=== PATIENT | female | born 1970 | race Caucasian/White ===

== ENCOUNTER → 2018-06-08 | Day surgery (SDC) | payer OTHER ==
[~2018-06-08] VITALS: Ht 162.6 cm; Wt 95.7 kg
[~2018-06-08] MED LIST: AMOXIL500 MG PO; BACTRIM DS 8001 TAB PO; BUSPAR5 MG PO; CLONIDINE0.1 MG PO; CYMBALTA60 M1 PO; DEPAKOTE ER250 M1 PO; DIVALPROEX SOD500 M2 PO; DULOXETINE HCL30 MG PO; GLIMEPIRIDE2 MG PO; LIPITOR10 M1 PO; MASON NATURAL2000 IU PO; MEDROL DOSEPAK1 PAC PO; METFORMIN HCL500 M3 PO; MOBIC15 M1 PO; NAPROSYN 500 M500 MG PO; NORCO 5-325 TA1 EACH PO; ONE DAILY MULT1 EAC2 PO; PERCOCET 5-3251 EACH PO; TOPIRAMATE50 M1 PO; TRAZODONE HCL50 M1 PO; VITAMIN B-122000 MC1 PO; VITAMIN B11000 MCG/M IM
--- NOTE | 2018-06-08 11:44 | Operative Report ---
Operative/Inv Procedure Report Surgery Date: 06/08/18 Name of Procedure: Left nipple exploration with duct excision Pre-Operative Diagnosis: Left bloody nipple discharge Post-Operative Diagnosis: Same Estimated Blood Loss: scant Surgeon/Banking Paralegal: Marilee Dang MD Anesthesia: local monitored anesthesi Specimens: Left duct excision Operative/Procedure Note Note: Patient had persistent bloody nipple discharge from a single duct in the left breast. She noted no change with course of antibiotic. No intraductal lesion was identified on imaging. She was brought to the operating room for duct excision. She was placed under anesthesia and given 2 g of Ancef. The left breast was prepped and draped in sterile fashion using ChloraPrep. 1% Marcaine mixed with 1% lidocaine was given and a periareolar fashion. The nipple discharge was provoked and the duct in the central portion of the nipple was cannulated using a lacrimal duct probe. An incision was then made in the lateral areola. The areola was elevated to the ductal system. The appropriate duct was identified with the lacrimal duct probe within it. This was dissected from surrounding ducts. Ties were placed proximally and distally. The distal duct excision was performed. There were multiple pockets of thick yellow fluid when coming across the small minor ducts. There is also brown fluid and the proximal duct. The specimen was removed and marked for orientation using margin map. The duct was ligated at the nipple. The base the nipple was reapproximated using interrupted Vicryl sutures the wound was irrigated. Deep tissue was approximated using interrupted Vicryl sutures And the skin was closed using a running Biosyn subcuticular stitch. A search of concern dressings were applied and patient transferred to the recovery room in satisfactory condition having tolerated the procedure well.
== END ==
LOC: STS 01:17
DX: N64.59 Other signs and symptoms in breast (principal); N60.12 Diffuse cystic mastopathy of left breast; E03.9 Hypothyroidism, unspecified; E11.9 Type 2 diabetes mellitus without complications; Z79.84 Long term (current) use of oral hypoglycemic drugs; E78.2 Mixed hyperlipidemia; E66.9 Obesity, unspecified; F31.89 Other bipolar disorder
CPT/HCPCS: 81025; J0131; J0690; J1100; J2001; J2250; J2405